=== PATIENT | male | born 1990 | race Caucasian/White ===

== ENCOUNTER 2018-06-07 16:31 | Emergency (ER) | payer OTHER ==
[~2018-06-07] VITALS: Ht 177.8 cm; Wt 82.7 kg
[2018-06-07 16:41] VITALS: TEMP 36.5; Ht 177.8 cm; Wt 82.7 kg
[2018-06-07] MEDS ORDERED: ONDANSETRON INJ 2 MG/ML 2 ML VIAL IV STA (16:52)
[2018-06-07] MEDS ORDERED: SODIUM CHLORIDE 0.9% 1000ML 1,000 ML IV ONE ×2 (17:00→18:30)
[2018-06-07] MEDS ORDERED: HYDROmorphone INJ 1 MG/ML SYR IV ONE (17:00)
[2018-06-07] MEDS ORDERED: SENNTAB23 PO (17:17)
[2018-06-07 17:40] LABS: BASO % 0.1 %; BASO ABS # 0.01 K/uL (0-0.2); HEMATOCRIT 44.1 % (42-52); HEMOGLOBIN 15.6 g/dL (14.0-18.0); IG# 0.04 K/uL (0.00-0.02); LYMPH % 6.5 %; MEAN CELL VOLUME 89.1 fL (80-100); MEAN CORPUSCULAR HEMOGLOBIN 31.5 pg (25-34); MEAN CORPUSCULAR HGB CONC 35.4 g/dl (32-36); MEAN PLATELET VOLUME 10.7 fL (7.4-10.4); MONO % 6.6 %; MONO ABS # 0.92 K/uL (0.11-0.59); NEUT % 86.5 %; NEUT ABS # 12.03 K/uL (1.4-6.5); PLATELET COUNT 186 K/uL (130-400); RED CELL DISTRIBUTION WIDTH CV 12.8 % (11.5-14.5); RED CELL DISTRIBUTION WIDTH SD 41.2 fL (36.4-46.3)
[2018-06-07 18:03] LABS: ALBUMIN 4.5 gm/dl (3.4-5.0); CREATININE 1.43 mg/dl (0.60-1.40); POTASSIUM 3.9 mmol/L (3.5-5.1); TOTAL PROTEIN 7.8 gm/dl (6.4-8.2)
[2018-06-07] MEDS ORDERED: ACETAMINOPHEN IV 100 ML IV STA (18:06)
[2018-06-07] MEDS ORDERED: GI COCKTAIL PO STA (18:06)
[2018-06-07] MEDS ORDERED: LIDOCAINE HCL 2% VISC SOLN 20 ML UDC ONE (18:13)
[2018-06-07] MEDS ORDERED: ALUMINUM/MAGNESIUM SUSP 30 ML UDC ONE (18:13)
[2018-06-07] MEDS ORDERED: PANTOprazole INJ 40 MG in SYRINGE 0 ML IV ONE (18:15)
--- NOTE | 2018-06-07 18:29 | EMERGENCY ROOM VISIT NOTE ---
History First contact with patient: 16:45 Chief Complaint: ABDOMINAL PAIN Stated Complaint: ABDOMINAL PAIN, VOMITING Nursing Triage Summary: Triage Notes: Patient ambulatory to triage with a hunched over gait, states "We went out an had some drinks last night for the first time in about 2 years. I woke up at 0530 with excruciating pain in my abdomen. I am not able to have a BM. I am now not able to urinate well. I went to [facility] and they tried to put a catheter in. They messed something up and now I have pain there. I have so much pain in my left lower abdomen and back. I have been vomiting all day today." History of Present Illness The patient is a 27 year old male who presents to the Emergency Room with complaints of constant boring abdominal pain that started at 430 this morning. He is also had nausea and vomiting. He is unsure of how many times he has vomited. He denies any fever. He is unsure of his last bowel movement. The patient admits to drinking heavily last night as it was his birthday celebration. He does not typically drink alcohol. He thought at first that this could be constipation. He tried an enema and suppository with no relief. Review of Systems 10 system review performed and negative unless noted in HPI or below Past Medical/Surgical History History of pelvic fracture Family History No pertinent family history Social History Smoking Status: Never Smoker Drug Use: none Marital Status: single Occupation Status: employed, student Current/Historical Medications Scheduled Ondasetron Odt (Zofran Odt), 4 MG SL Q6H Tamsulosin Hcl (Flomax), 0.4 MG PO DAILY Scheduled PRN Oxycodone Ir (Roxicodone Ir), 1 TAB PO Q4H PRN for Pain Sennosides-Docusate Sodium (Stool Softener), 2 TABS PO DAILY PRN for Constipation Physical Exam Vital Signs Date Time Temp Pulse Resp B/P (MAP) Pulse Ox O2 Delivery O2 Flow Rate FiO2 06/07/18 20:30 91 18 119/53 96 Room Air 06/07/18 19:00 54 16 144/73 94 Room Air 06/07/18 18:13 43 12 98 Room Air 06/07/18 18:08 44 12 98 Room Air 06/07/18 18:01 126/74 06/07/18 17:38 46 12 95 Room Air 06/07/18 17:33 46 18 132/67 94 Room Air 06/07/18 17:33 132/67 06/07/18 17:31 46 11 89 06/07/18 17:23 45 06/07/18 16:41 36.5 49 18 135/69 100 Room Air Physical Exam GENERAL: 27-year-old male, in moderate discomfort,, SKIN: The skin was without rashes, erythema, edema, or bruising. . HEAD: Normocephalic atraumatic. EYES: Conjunctivae without injection, sclerae without icterus. Extraocular movements intact. MOUTH: Mucous membranes dry NECK: Supple without nuchal rigidity. No lymphadenopathy. Cervical spine is nontender. No JVD. HEART: Bradycardic, regular rhythm without murmurs gallops or rubs. LUNGS: Clear to auscultation bilaterally without wheezes, rales or rhonchi. No accessory muscle use. ABDOMEN: Bowel sounds hypoactive. Tenderness to palpation in the left upper and left lower quadrant. No rebound tenderness noted.. MUSCULOSKELETAL: No muscle atrophy, erythema, or edema noted. Full range of motion in all extremities. No tenderness to palpation. . Strength 5/5 throughout. NEURO: Patient was alert and oriented to person place and time. Normal sensation to touch. No focal neurological deficits. Medical Decision & Procedures ER Provider Diagnostic Interpretation: CT of the abdomen and pelvis with IV contrast IMPRESSION: 1. Obstructing 5 mm calculus in the distal left ureter immediately proximal to the ureterovesical junction. Resultant mild left hydroureteronephrosis. Additional nonobstructing left renal calculi. No right renal calculi. 2. Mild distention of proximal small bowel loops likely mild ileus. No bowel obstruction. 3. Extensive periportal edema may be due to aggressive hydration. Electronically signed by: Delonte Clemente M.D. 06/07/2018 6:59 PM Laboratory Results 06/07/18 17:12 Red Blood Count 4.95, Mean Corpuscular Volume 89.1, Mean Corpuscular Hemoglobin 31.5, Mean Corpuscular Hemoglobin Concent 35.4, Mean Platelet Volume 10.7, Neutrophils (%) (Auto) 86.5, Lymphocytes (%) (Auto) 6.5, Monocytes (%) (Auto) 6.6, Eosinophils (%) (Auto) 0.0, Basophils (%) (Auto) 0.1, Neutrophils # (Auto) 12.03, Lymphocytes # (Auto) 0.90, Monocytes # (Auto) 0.92, Eosinophils # (Auto) 0.00, Basophils # (Auto) 0.01 06/07/18 17:12 Test 06/07/18 17:12 06/07/18 18:00 06/07/18 19:24 White Blood Count 13.90 K/uL (4.8-10.8) Red Blood Count 4.95 M/uL (4.7-6.1) Hemoglobin 15.6 g/dL (14.0-18.0) Hematocrit 44.1 % (42-52) Mean Corpuscular Volume 89.1 fL (80-100) Mean Corpuscular Hemoglobin 31.5 pg (25-34) Mean Corpuscular Hemoglobin Concent 35.4 g/dl (32-36) Platelet Count 186 K/uL (130-400) Mean Platelet Volume 10.7 fL (7.4-10.4) Neutrophils (%) (Auto) 86.5 % Lymphocytes (%) (Auto) 6.5 % Monocytes (%) (Auto) 6.6 % Eosinophils (%) (Auto) 0.0 % Basophils (%) (Auto) 0.1 % Neutrophils # (Auto) 12.03 K/uL (1.4-6.5) Lymphocytes # (Auto) 0.90 K/uL (1.2-3.4) Monocytes # (Auto) 0.92 K/uL (0.11-0.59) Eosinophils # (Auto) 0.00 K/uL (0-0.5) Basophils # (Auto) 0.01 K/uL (0-0.2) RDW Standard Deviation 41.2 fL (36.4-46.3) RDW Coefficient of Variation 12.8 % (11.5-14.5) Immature Granulocyte % (Auto) 0.3 % Immature Granulocyte # (Auto) 0.04 K/uL (0.00-0.02) Anion Gap 13.0 mmol/L (3-11) Est Creatinine Clear Calc Drug Dose 78.7 ml/min Estimated GFR () 76.2 Estimated GFR (Non- 65.7 BUN/Creatinine Ratio 18.5 (10-20) Calcium Level 9.0 mg/dl (8.5-10.1) Total Bilirubin 1.6 mg/dl (0.2-1) Aspartate Amino Transf (AST/SGOT) 42 U/L (15-37) Alanine Aminotransferase (ALT/SGPT) 78 U/L (12-78) Alkaline Phosphatase 78 U/L (45-117) Total Protein 7.8 gm/dl (6.4-8.2) Albumin 4.5 gm/dl (3.4-5.0) Globulin 3.3 gm/dl (2.5-4.0) Albumin/Globulin Ratio 1.4 (0.9-2) Lipase 67 U/L (73-393) Lactic Acid Level 1.4 mmol/L (0.4-2.0) Urine Color YELLOW Urine Appearance CLEAR (CLEAR) Urine pH 5.0 (4.5-7.5) Urine Specific [place] > 1.045 (1.000-1.030) Urine Protein NEG (NEG) Urine Glucose (UA) NEG (NEG) Urine Ketones 3+ (NEG) Urine Occult Blood 1+ (NEG) Urine Nitrite NEG (NEG) Urine Bilirubin NEG (NEG) Urine Urobilinogen NEG (NEG) Urine Leukocyte Esterase NEG (NEG) Urine WBC (Auto) 1-5 /hpf (0-5) Urine RBC (Auto) 5-10 /hpf (0-4) Urine Hyaline Casts (Auto) 1-5 /lpf (0-5) Urine Epithelial Cells (Auto) 10-20 /lpf (0-5) Urine Bacteria (Auto) NEG (NEG) Medications Administered Medications (Trade) Dose Ordered Sig/Sariah Route Start Time Stop Time Status Last Admin Dose Admin Hydromorphone HCl (Dilaudid Inj) 1 mg ONE ONCE IV 06/07/18 17:00 06/07/18 17:01 DC 06/07/18 17:15 1 MG Ondansetron HCl (Zofran Inj) 4 mg NOW STAT IV 06/07/18 16:52 06/07/18 16:54 DC 06/07/18 17:14 4 MG Sodium Chloride 1,000 ml @ 999 mls/hr Q1H1M ONCE IV 06/07/18 17:00 06/07/18 18:00 DC 06/07/18 17:13 999 MLS/HR Acetaminophen 100 ml @ 400 mls/hr ONE STAT IV 06/07/18 18:06 18 18:20 DC 06/07/18 18:19 400 MLS/HR Pantoprazole Sodium 40 mg/ Syringe 10 ml @ 5 mls/min NOW ONCE IV 06/07/18 18:15 06/07/18 18:16 DC 06/07/18 18:19 5 MLS/MIN Al Hydroxide/Mg Hydroxide (Maalox Susp) 30 ml STK-MED ONCE .ROUTE 06/07/18 18:13 06/07/18 18:14 DC 06/07/18 18:18 30 ML Lidocaine HCl (Viscous Lidocaine 2% Soln) 20 ml STK-MED ONCE .ROUTE 06/07/18 18:13 06/07/18 18:14 DC 06/07/18 18:18 10 ML Sodium Chloride 1,000 ml @ 999 mls/hr Q1H1M ONCE IV 06/07/18 18:30 06/07/18 19:30 DC 06/07/18 18:28 999 MLS/HR Ketorolac Tromethamine (Toradol Inj) 30 mg NOW STAT IV 06/07/18 20:05 06/07/18 20:06 DC 06/07/18 20:19 30 MG Tamsulosin HCl (Flomax Cap) 0.4 mg NOW ONCE PO 06/07/18 20:15 06/07/18 20:16 DC 06/07/18 20:19 0.4 MG Oxycodone HCl (Roxicodone Immediate Rel 5MG Home Pack) 1 homepack UD ONCE PO 06/07/18 21:15 06/07/18 21:16 DC 06/07/18 21:24 1 HOMEPACK Ondansetron HCl (ZOFRAN ODT 4MG Home Pack) 1 homepack UD ONCE PO 06/07/18 21:15 06/07/18 21:16 DC 06/07/18 21:25 1 HOMEPACK ED Course Patient was seen and examined Vital signs including blood pressure were reviewed medications list was verified with patient Labs were obtained, and a saline lock was established The patient was medicated with Dilaudid 1 mg IV and Zofran 4 mg IV. He was hydrated with 1 L of normal saline. The patient became hypoxic after the Dilaudid. He was put on oxygen, which improved his O2. He was still complaining of pain. He was ordered Acetaminophen 1 g IV, pantoprazole 40 mg IV and a GI cocktail He was also ordered an additional bolus 1 L normal saline Imaging was performed and reviewed The patient was reassessed and resting more comfortably. We discussed his workup. He voiced understanding. His pain was improved. The patient was given 1 dose of Toradol 30 mg IV and 1 dose of Flomax 0.4 mg by mouth The patient was given a home pack of oxycodone and Zofran Case management was involved. They made a follow-up appointment with urology for the patient. I reviewed discharge instructions the patient. They voiced understanding and had no further questions. Medical Decision Differential diagnosis: Gastritis, gastric/duodenal ulcer, pancreatitis, hepatitis, cholecystitis, SBO, viral GI illness among others were entertained This patient is a 27-year-old male that presents to emergency department complaining of abdominal pain and vomiting that started at approximately 430 this morning. On exam, he was obviously uncomfortable. He had slight tenderness in the left side of the abdomen. His workup reveals mild leukocytosis and a slight elevation in his creatinine likely due to dehydration. I was thinking that this could possibly be a gastritis or pancreatitis-result of binge drinking last night. A CT scan was performed. This is consistent with a left proximal 5 mm ureteral stone. The patient denied any urinary complaints. He does not have a history of kidney stones. The patient had only mild hydronephrosis. The patient had good pain control in the emergency department. He was aggressively hydrated in the emergency department. He was tolerating liquids. For this reason, I believe it is reasonable to try to send the patient home with close urologic follow-up. The patient was given a follow-up appointment with urology prior to departure. He was also given a course of pain meds, nausea medication and Flomax. The patient was comfortable with this plan. He was in agreement to return to the ED with any concerning symptoms; especially, fever, persistent vomiting or worsening pain. This chart was completed in part utilizing [employer] Voice Recognition software. Attempts were made to minimize the grammatical errors, random word insertions, pronoun errors and incomplete sentences. Any formal questions or concerns about the content, text or information contained within the body of this dictation should be directly addressed to the provider for clarification. Medication Reconcilliation Current Medication List: was personally reviewed by me Blood Pressure Screening Patient's blood pressure: Normal blood pressure Impression Primary Impression: Kidney stone Departure Information Dispostion Home / Self-Care Condition GOOD Prescriptions Tamsulosin Hcl (FLOMAX) 0.4 Mg Cap 0.4 MG PO DAILY for 7 Days, #7 CAP Prov: Felipa House PA-C 06/07/18 Oxycodone Ir (Roxicodone Ir) 5 Mg Tab 1 TAB PO Q4H Y for Pain, #15 TAB For Initial Treatment Prov: Felipa House PA-C 06/07/18 Ondasetron Odt (ZOFRAN ODT) 4 Mg Tab 4 MG SL Q6H for Nausea, #20 TAB Prov: Felipa House PA-C 06/07/18 Referrals Asif Escobedo D.O. (PCP) Gonzalez Morales M.D. Patient Instructions [facility] Additional Instructions You have been evaluated in the emergency department for abdominal pain and vomiting. You have a left-sided kidney stone. Please drink as much water as possible to try to flush the stone out. Zofran every 6 hours as needed for nausea Please take Flomax 1 tab daily Ibuprofen 600 mg every 8 hours for pain Oxycodone Immediate Release (OxyIR) 5mg: Take 1-2 pills every four hours for pain. Avoid alcohol, operating machinery or dangerous equipment, working on ladders or roofs, DRIVING, or situations where being under the influence may be dangerous. It is recommended to use an [id number] stool softener such as Colace, 100mg twice daily while taking this medication to avoid constipation. Please follow-up with urology as scheduled. You should have repeat blood work and follow-up with your primary care physician this week. Please do not hesitate to return to emergency department with any new, worsening or concerning symptoms; especially, fever, persistent vomiting or worsening pain It was a pleasure participating in your care today
[2018-06-07] MEDS ORDERED: OPTIRAY 320 IV PRN (18:30)
--- NOTE | 2018-06-07 19:00 | DIAGNOSTIC IMAGING REPORT ---
ABD/PELVIS IV CONTRAST ONLY CLINICAL HISTORY: 27 years-old Male presenting with LUQ epigastric pain vomiting. TECHNIQUE: Multidetector CT of the abdomen and pelvis was performed after the administration of intravenous contrast. IV contrast: 94 mL of Optiray 320. A dose lowering technique was used consistent with the principles of ALARA (as low as reasonably achievable). COMPARISON: 12/26/2015. CT DOSE (mGy.cm): The estimated cumulative dose is 358.64 mGy.cm. FINDINGS: [employer] topogram: Two screw fixation of the left ilium. Lung bases: Minimal basilar opacities, likely atelectasis. Normal heart size. No pericardial or pleural effusion. Liver: Normal morphology. Extensive periportal edema. No liver lesion. Patent hepatic vasculature. Biliary: No intrahepatic or extrahepatic biliary ductal dilatation. Normal gallbladder. Pancreas: Normal. Spleen: Normal. Adrenal glands: Normal. Kidneys and ureters: Relative delayed perfusion of the left kidney with mild left pelvocaliectasis. There is also distention of the left ureter. Struck containing 5 mm calculus at the distal left ureter immediately proximal to the ureterovesical junction. Moderate left perinephric fat stranding. Additional nonobstructing left renal calculi. No right renal calculi. No right hydronephrosis. Right ureter normal. Bladder: Normal. No bladder calculi. Pelvic organs: Prostate and seminal vesicles normal. Bowel: Few diverticula noted at the descending colon. The appendix is normal. No bowel obstruction. Mild distention of proximal small bowel loops up to 2.9 cm in diameter though there is smooth distal tapering, possibly limited ileus. Peritoneal cavity: No free fluid or intraperitoneal gas. Lymph nodes: No enlarged lymph nodes in the abdomen or pelvis. Vasculature: Aorta and IVC patent and normal in caliber. Abdominal wall: Normal. Musculoskeletal: 2 screw fixation of the left ilium. Posttraumatic deformity of the left acetabulum and left superior pubic ramus. IMPRESSION: 1. Obstructing 5 mm calculus in the distal left ureter immediately proximal to the ureterovesical junction. Resultant mild left hydroureteronephrosis. Additional nonobstructing left renal calculi. No right renal calculi. 2. Mild distention of proximal small bowel loops likely mild ileus. No bowel obstruction. 3. Extensive periportal edema may be due to aggressive hydration. Electronically signed by: Delonte Clemente M.D. 06/07/2018 6:59 PM Dictated Date/Time: 06/07/2018 6:52 PM
[2018-06-07] MEDS ORDERED: KETOROLAC TROMETHAMINE 30 MG/ML VIAL IV STA (20:05)
[2018-06-07] MEDS ORDERED: TAMSULOSIN HCL 0.4 MG CAP PO ONE (20:15)
[2018-06-07] MEDS ORDERED: ONDANSETRON HOME PACK 4MG OD TAB PO ONE (21:15)
[2018-06-07] MEDS ORDERED: OXYCODONE IR HOME PACK PO ONE (21:15)
[2018-06-07] MEDS ORDERED: OXYC-90 PO (21:26)
[2018-06-07] MEDS ORDERED: TAMS0.4C38 PO (21:26)
[2018-06-07] MEDS ORDERED: ONDA4TAB10 SL (21:26)
[2018-06-07 21:49] VITALS: BP 122/65; PULSE 94; O2SAT 96
== END 2018-06-07 21:45 | disposition home or self-care (01) ==
LOC: C.EDB 16:32
DX: N20.1 Calculus of ureter (principal); N13.30 Unspecified hydronephrosis; R09.02 Hypoxemia

== ENCOUNTER → 2018-06-11 | Outpatient (CLI) | payer OTHER ==
[~2018-06-11] MED LIST: ONDA4TAB10 SL; OXYC-90 PO; SENNTAB23 PO; TAMS0.4C38 PO
== END | disposition home or self-care (01) ==
LOC: C.LABSPEC 17:28
PROVIDERS: ATTEND Urology
DX: N20.0 Calculus of kidney (principal)